=== PATIENT | female | born 1990 | race Caucasian/White ===

== ENCOUNTER 2021-12-17 16:37 | Emergency (ER) | payer OTHER, BC ==
[~2021-12-17] VITALS: Ht 167.6 cm; Wt 98.1 kg
[2021-12-17 19:29] LABS: BASO % 0.5 % (0.0-1.0); EOS # 0.1 10^3/uL (0.0-0.5); EOS % 1.4 % (0.0-3.0); HEMATOCRIT 38.2 % (36.0-47.0); HEMOGLOBIN 12.9 g/dl (12.0-15.5); LYMPH # 1.9 10^3/uL (1.5-5.0); LYMPH % 23.8 % (24.0-44.0); MEAN CORPUSCULAR HEMOGLOBIN 31.3 pg (27.0-33.0); MEAN CORPUSCULAR HGB CONC 33.8 g/dl (32.0-36.5); MEAN CORPUSCULAR VOLUME 92.7 fl (80.0-96.0); MONO # 0.6 10^3/uL (0.0-0.8); MONO % 7.9 % (2.0-8.0); NEUTROPHILS # 5.2 10^3/uL (1.5-8.5); NEUTROPHILS % 66.1 % (36.0-66.0); PLATELET COUNT, AUTOMATED 341 10^3/uL (150-450); RED BLOOD COUNT 4.12 10^6/uL (4.00-5.40); WHITE BLOOD COUNT 7.8 10^3/uL (4.0-10.0)
[2021-12-17 20:00] LABS: BLOOD UREA NITROGEN 16 MG/DL (7-18); CALCIUM LEVEL 9.1 MG/DL (8.5-10.1); CARBON DIOXIDE LEVEL 26 MEQ/L (21-32); CHLORIDE LEVEL 107 MEQ/L (98-107); CREATININE FOR GFR 0.81 MG/DL (0.55-1.30); GLOMERULAR FILTRATION RATE > 60.0 (>60); GLUCOSE, FASTING 98 MG/DL (70-100); HCG, SERUM QUANTITATIVE < 1.0 MIU/ML; POTASSIUM SERUM 4.1 MEQ/L (3.5-5.1); SODIUM LEVEL 138 MEQ/L (136-145)
[2021-12-17 22:54] VITALS: BP 116/72
== END 2021-12-17 22:56 | disposition home or self-care (01) ==
LOC: M ED 16:37
DX: N93.9 Abnormal uterine and vaginal bleeding, unspecified (principal); R31.9 Hematuria, unspecified; Z88.1 Allergy status to other antibiotic agents

== ENCOUNTER → 2021-12-17 | Outpatient (CLI) | payer BC, OTHER | LOC: M PLALAB 16:17 | PROVIDERS: ATTEND Advanced Practice Midwife | DX: O20.9 Hemorrhage in early pregnancy, unspecified (principal); Z3A.00 Weeks of gestation of pregnancy not specified ==

== ENCOUNTER → 2022-02-12 | Outpatient (REF) | payer BC, OTHER | LOC: M LAB REF 19:29 | PROVIDERS: ATTEND Advanced Practice Midwife | DX: N92.6 Irregular menstruation, unspecified (principal) ==

== ENCOUNTER → 2022-02-16 | Outpatient (CLI) | payer BC, OTHER | LOC: M PLALAB 15:12 | PROVIDERS: ATTEND Advanced Practice Midwife | DX: N91.2 Amenorrhea, unspecified (principal) ==

== ENCOUNTER → 2022-02-18 | Outpatient (REF) | payer BC, OTHER | LOC: M PLALAB 09:23 | PROVIDERS: ATTEND Advanced Practice Midwife | DX: N91.2 Amenorrhea, unspecified (principal) ==

== ENCOUNTER → 2022-02-25 | Outpatient (CLI) | payer BC, OTHER | LOC: M PLALAB 15:47 | PROVIDERS: ATTEND Advanced Practice Midwife | DX: O03.9 Complete or unspecified spontaneous abortion without complication (principal) ==

== ENCOUNTER → 2022-06-10 | Outpatient (CLI) | payer BC, OTHER ==
[2022-06-10 17:40] LABS: BASO # 0.1 10^3/uL (0.0-0.2); BASO % 0.5 % (0.0-1.0); EOS # 0.1 10^3/uL (0.0-0.5); EOS % 1.1 % (0.0-3.0); HEMATOCRIT 39.4 % (36.0-47.0); HEMOGLOBIN 13.1 g/dl (12.0-15.5); MEAN CORPUSCULAR HEMOGLOBIN 31.3 pg (27.0-33.0); MEAN CORPUSCULAR HGB CONC 33.2 g/dl (32.0-36.5); MONO # 0.6 10^3/uL (0.0-0.8); MONO % 5.5 % (2.0-8.0); NEUTROPHILS # 7.3 10^3/uL (1.5-8.5); NEUTROPHILS % 72.5 % (36.0-66.0); PLATELET COUNT, AUTOMATED 323 10^3/uL (150-450); RED BLOOD COUNT 4.19 10^6/uL (4.00-5.40)
[2022-06-10 19:17] LABS: GC DNA AMPLIFICATION NEGATIVE (NEGATIVE)
[2022-06-12 08:21] LABS: HIV 1&2 SCREEN CENTAUR NEGATIVE (NEGATIVE)
== END ==
LOC: M PLALAB 15:10
PROVIDERS: ATTEND Advanced Practice Midwife
DX: Z34.81 Encounter for supervision of other normal pregnancy, first trimester (principal)

== ENCOUNTER → 2022-08-12 | Outpatient (CLI) | payer BC, OTHER | LOC: M WHC 13:22 | PROVIDERS: ATTEND Specialist | DX: Z34.82 Encounter for supervision of other normal pregnancy, second trimester (principal); Z3A.19 19 weeks gestation of pregnancy ==

== ENCOUNTER 2023-01-08 15:32 | Inpatient (IN) | payer BC, OTHER ==
[2023-01-08] VITALS (8 sets, daily range): BP systolic 111–133; BP diastolic 65–93
[~2023-01-08] VITALS: Ht 167.6 cm; Wt 108.4 kg
[2023-01-08] MEDS ORDERED: LACTATED RINGER'S 1000 ML IV STA (15:54)
[2023-01-08] MEDS ORDERED: TRANEXAMIC ACID INJection 1,000 MG in NS 100 ML IV PRN (15:55)
[2023-01-08] MEDS ORDERED: CARBOPROST TROMETHAMINE 250 MCG/ML AMP IM PRN (15:55)
[2023-01-08] MEDS ORDERED: OXYTOCIN DRIP 30 UNITS in IV 1 EA IV PRN (15:55)
[2023-01-08] MEDS ORDERED: LR 1,000 ML IV SCH ×2 (15:55→22:00)
[2023-01-08] MEDS ORDERED: LIDOCAINE 1% MDV 20ML VIAL INFIL PRN (15:55)
[2023-01-08] MEDS ORDERED: METHYLERGONOVINE MALEATE 0.2MG/ML 1ML VIAL IM PRN (15:55)
[2023-01-08] MEDS ORDERED: MULTTAB20 PO (16:05)
[2023-01-08] MEDS ORDERED: PROB250C PO (16:05)
[2023-01-08] MEDS ORDERED: LEXA1TAB PO (16:05)
[2023-01-08] MEDS ORDERED: OMEP40CA4 PO (16:05)
[2023-01-08] MEDS ORDERED: [UNRECOGNIZED DRUG - OTHER] PO (16:15)
[2023-01-08] MEDS ORDERED: miSOPROStol 50MCG 1/2 TABLET PO ONE (16:45)
[2023-01-08 17:20] LABS: HEMATOCRIT 36.2 % (36.0-47.0); HEMOGLOBIN 12.5 g/dl (12.0-15.5); MEAN CORPUSCULAR HEMOGLOBIN 30.8 pg (27.0-33.0); MEAN CORPUSCULAR HGB CONC 34.5 g/dl (32.0-36.5); MEAN CORPUSCULAR VOLUME 89.2 fl (80.0-96.0); PLATELET COUNT, AUTOMATED 233 10^3/uL (150-450); RED BLOOD COUNT 4.06 10^6/uL (4.00-5.40); WHITE BLOOD COUNT 9.5 10^3/uL (4.0-10.0)
[2023-01-08] MEDS ORDERED: OXYTOCIN DRIP 30 UNITS in IV 1 EA IV SCH (22:00)
[2023-01-09] VITALS (35 sets, daily range): BP systolic 89–133; BP diastolic 50–86; O2SAT 97–98
[2023-01-09] MEDS ORDERED: EPIDURAL/PCA KEYS XX PRN ×2 (03:30→07:15)
[2023-01-09] MEDS ORDERED: NALOXONE INJ 0.4MG/1ML VIAL IV PRN (03:30)
[2023-01-09] MEDS ORDERED: ONDANSETRON 4MG 2ML VIAL IV PRN (03:30)
[2023-01-09] MEDS ORDERED: diphenhydrAMINE 50MG/ML VIAL IV PRN (03:30)
[2023-01-09] MEDS ORDERED: LR 500 ML IV PRN (03:30)
[2023-01-09] MEDS ORDERED: FENTANYL/ROPIVACAINE/NACL BAG 100 ML EPIDURAL SCH (03:30)
[2023-01-09] MEDS: ePHEDrine SULFATE 25 MG/5 ML(5MG/ML) SYRINGE IVP PRN ×3 (06:34→06:42)
[2023-01-09] MEDS ORDERED: ePHEDrine SULFATE 25 MG/5 ML(5MG/ML) SYRINGE IVP PRN (07:15)
[2023-01-09] MEDS ORDERED: ePHEDrine SULFATE 25 MG/5 ML(5MG/ML) SYRINGE As Ordered ONE (07:18)
[2023-01-09] MEDS ORDERED: ACETAMINOPHEN TAB 650MG DOSE (2X325MG) PO PRN (14:40)
[2023-01-09] MEDS ORDERED: METHYLERGONOVINE MALEATE 0.2 MG TAB PO PRN (14:40)
[2023-01-09] MEDS ORDERED: DIBUCAINE 1% OINTMENT 30GM TOP PRN (14:40)
[2023-01-09] MEDS ORDERED: IBUPROFEN 600MG TAB PO PRN (14:40)
[2023-01-09] MEDS ORDERED: ACETAMINOPHEN 500 MG TAB PO PRN (14:40)
[2023-01-09] MEDS ORDERED: RHOGAM 300MCG (1500IU) INJ IM SCH (14:40)
[2023-01-09] MEDS: IBUPROFEN 800 MG TAB PO PRN ×2 (14:51→23:52)
[2023-01-09] MEDS: DOCUSATE SODIUM 100MG CAPSULE PO PRN (19:52)
[2023-01-10 05:42] VITALS: BP 113/66; O2SAT 98
[2023-01-10] MEDS: PRENATAL VITAMINS CHEWABLE TABLET PO SCH (07:56)
[2023-01-10] MEDS: IBUPROFEN 800 MG TAB PO PRN ×2 (07:57→16:06)
[2023-01-10 18:00] VITALS: BP 132/85; O2SAT 99
[2023-01-10] MEDS: DOCUSATE SODIUM 100MG CAPSULE PO PRN (21:25)
[2023-01-11 06:00] VITALS: BP 110/63; O2SAT 97
[2023-01-11] MEDS: PRENATAL VITAMINS CHEWABLE TABLET PO SCH (08:06)
[2023-01-11] MEDS: IBUPROFEN 800 MG TAB PO PRN (08:06)
[2023-01-11] MEDS ORDERED: MEASLES,MUMPS,RUBELLA VACCINE INJ (MMR-II) SC.IMMUN ONE (09:00)
[2023-01-11] MEDS ORDERED: IBUP-1022 PO (12:58)
[2023-01-11] MEDS ORDERED: ACET-683 PO (12:58)
[2023-01-11] MEDS ORDERED: LEXA1TAB PO (12:58)
== END 2023-01-11 13:38 | disposition home or self-care (01) | DRG 566 ==
LOC: M LDI 15:32 → M OBS 01-09 14:18
PROVIDERS: ADMIT Advanced Practice Midwife; ATTEND Advanced Practice Midwife
DX: O48.0 Post-term pregnancy (principal); Z3A.41 41 weeks gestation of pregnancy; O70.1 Second degree perineal laceration during delivery

== ENCOUNTER → 2025-02-06 | Outpatient (CLI) | payer BC ==
[~2025-02-06] MED LIST: ACET-683 PO; IBUP600T42 PO; LEXA1TAB PO; MULTTAB20 PO; OMEP40CA4 PO; PROB250C PO; [UNRECOGNIZED DRUG - OTHER] PO
[2025-02-06 17:33] LABS: PLATELET COUNT, AUTOMATED 360 10^3/uL (150-450)
[2025-02-06 18:23] LABS: Trichomonas vaginalis (AMP) NOT DETECTED (NEGATIVE)
[2025-02-06 18:38] LABS: HIV 1&2 SCREEN NEGATIVE (NEGATIVE)
[2025-02-06 18:46] LABS: HEPATITIS C VIRUS ABY INDEX < 0.02 INDEX (<0.8)
[2025-02-06 18:47] LABS: GC DNA AMPLIFICATION NEGATIVE (NEGATIVE)
== END ==
LOC: M PLALAB 15:17
PROVIDERS: ATTEND Advanced Practice Midwife
DX: Z34.81 Encounter for supervision of other normal pregnancy, first trimester (principal)